=== PATIENT | male | born 1960 | race Caucasian/White ===

== ENCOUNTER → 2018-07-15 | Outpatient (CLI) | payer BC | LOC: MHCPAIN 13:25 | DX: M47.817 Spondylosis without myelopathy or radiculopathy, lumbosacral region (principal); M54.16 Radiculopathy, lumbar region | CPT/HCPCS: J1100; Q9967 ==

== ENCOUNTER → 2018-07-28 | Outpatient (CLI) | payer BC | LOC: MHCPAIN 07:58 | DX: G89.29 Other chronic pain (principal); M47.817 Spondylosis without myelopathy or radiculopathy, lumbosacral region; M54.16 Radiculopathy, lumbar region; M53.3 Sacrococcygeal disorders, not elsewhere classified; M96.1 Postlaminectomy syndrome, not elsewhere classified | CPT/HCPCS: G0463 ==

== ENCOUNTER → 2018-08-12 | Outpatient (CLI) | payer OTHER | LOC: MHCPAIN 14:05 | DX: M47.817 Spondylosis without myelopathy or radiculopathy, lumbosacral region (principal); M54.16 Radiculopathy, lumbar region | CPT/HCPCS: J1100; Q9967 ==

== ENCOUNTER → 2018-09-13 | Outpatient (CLI) | payer OTHER | LOC: COL.RAD 07:20 | DX: Z01.818 Encounter for other preprocedural examination (principal); M54.10 Radiculopathy, site unspecified; M43.07 Spondylolysis, lumbosacral region; Z98.1 Arthrodesis status | CPT/HCPCS: A9585 ==

== ENCOUNTER → 2019-02-14 | Outpatient (CLI) | payer OTHER | LOC: COL.RAD 09:24 | DX: M48.07 Spinal stenosis, lumbosacral region (principal); M51.36 Other intervertebral disc degeneration, lumbar region; M51.26 Other intervertebral disc displacement, lumbar region; M25.78 Osteophyte, vertebrae; Z98.1 Arthrodesis status ==

== ENCOUNTER 2019-07-20 11:31 | Day surgery (SDC) | payer OTHER ==
[2019-07-20] VITALS (9 sets, daily range): BP systolic 127–150; BP diastolic 59–88; PULSE 74–98; TEMP 97.9–98.4
[~2019-07-20] VITALS: Ht 188 cm; Wt 100.7 kg
[2019-07-20] MEDS ORDERED: PRINIVIL20 MG PO (16:02)
[2019-07-20] MEDS ORDERED: LYRICA 150MG C150 MG PO (16:02)
[2019-07-20] MEDS ORDERED: LIPITOR20 MG PO (16:03)
[2019-07-20] MEDS ORDERED: OZEMPIC0.25 MG/0. SQ (16:04)
[2019-07-20] MEDS ORDERED: TRESIBA FL100 UNIT/1 (16:06)
[2019-07-20] MEDS ORDERED: ASPIRIN E.C. 8181 MG PO (16:06)
[2019-07-20] MEDS ORDERED: NORCO 325 MG-51 TAB PO (16:07)
[2019-07-20] MEDS ORDERED: ZOFRAN 4MG T4 MG/TAB PO (16:07)
--- NOTE | 2019-07-20 22:30 | NUR ---
Discharge criteria met. Has tolerated PO/voided/VS stable. Dischrage instructions given both verbal and handwritten. Discussed F/U appt, s/s of infections, home medications, diet, activity and dressing change. Denies questions or concerns. Provided with discharge scripts. IV dcd to left hand-cath intact. Pushed off floor by staff in wheelchair escorted by spouse in stable condition.
== END 2019-07-20 22:30 | disposition home or self-care (01) ==
LOC: SDCO 11:31 → SURG 19:00 → SDCO 22:30
DX: S46.011A Strain of muscle(s) and tendon(s) of the rotator cuff of right shoulder, initial encounter (principal); M75.31 Calcific tendinitis of right shoulder; M75.21 Bicipital tendinitis, right shoulder; M25.811 Other specified joint disorders, right shoulder; E11.9 Type 2 diabetes mellitus without complications; K21.9 Gastro-esophageal reflux disease without esophagitis; I10 Essential (primary) hypertension; G89.29 Other chronic pain; E78.00 Pure hypercholesterolemia, unspecified; Z79.4 Long term (current) use of insulin; Z90.49 Acquired absence of other specified parts of digestive tract; Z82.49 Family history of ischemic heart disease and other diseases of the circulatory system; Z83.3 Family history of diabetes mellitus
CPT/HCPCS: OP; A4565; A4619; C1713; J0171; J0360; J0690; J1100; J2175; J2250; J2405; J2704; J3010; J7030

== ENCOUNTER 2019-07-25 15:52 | Emergency (ER) | payer OTHER ==
[~2019-07-25] VITALS: Ht 188 cm; Wt 95.5 kg
[~2019-07-25 15:52] MED LIST: ASPIRIN E.C. 8181 MG PO; LIPITOR20 MG PO; LYRICA 150MG C150 MG PO; NORCO 325 MG-51 TAB PO; OZEMPIC0.25 MG/0. SQ; PRINIVIL20 MG PO; TRESIBA FL100 UNIT/1; ZOFRAN 4MG T4 MG/TAB PO
[2019-07-25 15:55] VITALS: TEMP 97.7
[2019-07-25 16:54] LABS: BASO % 0.1 % (0.0-2.0); EOS # 0.1 (0.0-0.7); EOS % 0.3 % (0-4.0); GRAN # 13.3 (1.4-6.5); GRAN % 87.8 % (42.2-75.2); HEMATOCRIT 43.6 % (42.0-52.0); HEMOGLOBIN 15.2 g/dl (13.5-18.0); LYMPH # 0.7 (1.2-3.4); LYMPH % 4.9 % (20.0-51.0); MEAN CELL VOLUME 84 fl (80.0-100.0); MEAN CORPUSCULAR HEMOGLOBIN 29 pg (27.0-31.0); MEAN CORPUSCULAR HGB CONC 35 g/dl (33.0-37.0); MEAN PLATELET VOLUME 11.9 fl (7.4-10.4); MONO % 6.5 % (1.7-9.3); PLATELET COUNT 219 K/mm3 (130-400); RED BLOOD COUNT 5.22 M/mm3 (4.20-5.60); REDCELL DISTRIBUTION WIDTH-CV 12.3 % (11.5-14.5)
[2019-07-25 17:08] LABS: ACETONE,SERUM NEGATIVE
[2019-07-25 17:10] LABS: ALANINE AMINOTRANSFERASE 95 U/L (21-72); ALBUMIN 4.3 gm/dL (3.5-5.0); ALKALINE PHOSPHATASE 125 U/L (50-136); ANION GAP 11 mmol/L (7-16); AST,SGOT 58 U/L (15-37); BILIRUBIN,TOTAL 1.4 mg/dL (0.0-1.0); BLOOD UREA NITROGEN 22 mg/dL (9-20); CALCIUM 9.1 mg/dL (8.4-10.2); CARBON DIOXIDE 27 mmol/L (22-30); CHLORIDE 98 mmol/L (98-107); CREATININE, serum 0.95 (0.66-1.25); GLUCOSE 369 mg/dL (74-106); LIPASE 290 U/L (23-300); POTASSIUM 4.7 mmol/L (3.4-5.0); SODIUM 136 mmol/L (137-145); TOTAL PROTEIN 7.4 gm/dL (6.4-8.2)
[2019-07-25 17:24] LABS: TROPONIN-I < 0.012 ng/mL (0.000-0.035)
[2019-07-25 17:56] LABS: MUCOUS Present /lpf; PH 5 (5-8); SQUAMOUS EPITHELIAL 0-2 /hpf; URINE APPEARANCE Clear; URINE BACTERIA None Seen /hpf; URINE BILIRUBIN Negative (NEGATIVE); URINE BLOOD 1+ (NEGATIVE); URINE COLOR Yellow; URINE GLUCOSE 3+ (NEGATIVE); URINE KETONE Negative (NEGATIVE); URINE LEUKOCYTE ESTERASE Negative (NEGATIVE); URINE NITRATE Negative (NEGATIVE); URINE PROTEIN(semi-quant) Negative (NEGATIVE); URINE RBC None Seen /hpf; URINE UROBILINOGEN Negative (NEGATIVE); URINE WBC 0-2 /hpf
[2019-07-25 18:21] LABS: COLLECTION METHOD CLEAN CATCH
[2019-07-25] MEDS ORDERED: MIRALAX238G PO (19:09)
[2019-07-25] MEDS ORDERED: CIPRO 500MG TA500 MG PO (19:09)
[2019-07-25] MEDS ORDERED: STOOL SOFTENER100 M2 PO (19:09)
[2019-07-25] MEDS ORDERED: FLAGYL500 MG PO (19:09)
[2019-07-25 19:39] VITALS: BP 169/106; PULSE 81
== END 2019-07-25 19:39 | disposition home or self-care (01) ==
LOC: COL.ER 15:52
PROVIDERS: Emergency Medicine
DX: R55 Syncope and collapse (principal); K52.9 Noninfective gastroenteritis and colitis, unspecified; E11.65 Type 2 diabetes mellitus with hyperglycemia; I10 Essential (primary) hypertension; E78.5 Hyperlipidemia, unspecified; E11.42 Type 2 diabetes mellitus with diabetic polyneuropathy; Z90.49 Acquired absence of other specified parts of digestive tract; Z79.4 Long term (current) use of insulin; Z98.890 Other specified postprocedural states; Z79.82 Long term (current) use of aspirin
CPT/HCPCS: J1815; J2405; J7030; Q9967

== ENCOUNTER → 2019-10-25 | Outpatient (CLI) | payer OTHER ==
[~2019-10-25] MED LIST changes: +CIPRO 500MG TA500 MG PO; +FLAGYL500 MG PO; +MIRALAX238G PO; +STOOL SOFTENER100 M2 PO
[2019-10-25 11:14] LABS: BASO # 0.1 (0.0-0.2); BASO % 0.7 % (0.0-2.0); EOS # 0.2 (0.0-0.7); GRAN % 66.2 % (42.2-75.2); HEMATOCRIT 42.7 % (42.0-52.0); HEMOGLOBIN 14.8 g/dl (13.5-18.0); LYMPH # 1.8 (1.2-3.4); LYMPH % 23.2 % (20.0-51.0); MEAN CELL VOLUME 84 fl (80.0-100.0); MEAN CORPUSCULAR HEMOGLOBIN 29 pg (27.0-31.0); MEAN CORPUSCULAR HGB CONC 35 g/dl (33.0-37.0); MONO # 0.6 (0.1-0.6); MONO % 7.5 % (1.7-9.3); PLATELET COUNT 193 K/mm3 (130-400); REDCELL DISTRIBUTION WIDTH-CV 12.6 % (11.5-14.5)
[2019-10-25 11:24] LABS: ALBUMIN 4.6 gm/dL (3.5-5.0); CALCIUM 9.6 mg/dL (8.4-10.2); CHOLESTEROL RISK RATIO 4.6; CREATININE, serum 0.74 (0.66-1.25); POTASSIUM 4.6 mmol/L (3.4-5.0); TOTAL PROTEIN 7.5 gm/dL (6.4-8.2)
[2019-10-25 11:54] LABS: TSH w REFLEX 1.96 uIU/mL (0.465-4.680)
== END ==
LOC: COL.LAB 10:41
PROVIDERS: Family Medicine
DX: Z00.00 Encounter for general adult medical examination without abnormal findings (principal)